=== PATIENT | female | born 1990 | race Caucasian/White ===

== ENCOUNTER 2018-07-18 11:19 | Emergency (ER) | payer MEDICAID ==
[~2018-07-18] VITALS: Ht 177.8 cm; Wt 85.0 kg
[2018-07-18 11:32] VITALS: BP 106/69
[2018-07-18] MEDS ORDERED: AMOX-580 PO (12:05)
== END 2018-07-18 12:19 | disposition home or self-care (01) ==
LOC: ER 11:19
DX: J01.00 Acute maxillary sinusitis, unspecified (principal); H65.93 Unspecified nonsuppurative otitis media, bilateral; Z88.1 Allergy status to other antibiotic agents
CPT/HCPCS: 99283

== ENCOUNTER 2020-04-09 16:38 | Emergency (ER) | payer BC, MEDICAID ==
[~2020-04-09] VITALS: Ht 177.8 cm; Wt 90.9 kg
[2020-04-09 17:51] VITALS: BP 121/78
== END 2020-04-09 18:06 | disposition home or self-care (01) ==
LOC: ER 16:40
DX: R09.89 Other specified symptoms and signs involving the circulatory and respiratory systems (principal); R50.9 Fever, unspecified; R51.9 Headache, unspecified; Z20.828 Contact with and (suspected) exposure to other viral communicable diseases; Z88.1 Allergy status to other antibiotic agents
CPT/HCPCS: 36415; 99282